=== PATIENT | male | born 1990 | race Caucasian/White ===

== ENCOUNTER 2018-04-05 10:18 | Emergency (ER) | payer OTHER ==
[2018-04-05] MEDS ORDERED: Zofran 4 MG/2 ML VIAL IV ONE (10:54)
[2018-04-05] MEDS ORDERED: Pepcid 20 MG VIAL IV ONE ×2 (10:54→11:12)
[2018-04-05] MEDS ORDERED: TORAdol 30 mg Injection IV ONE (10:54)
[2018-04-05] MEDS ORDERED: Sodium Chloride 0.9% 1000 ML 2,000 ML ONE (10:55)
[2018-04-05] MEDS: Sodium Chloride 0.9% 1000 ML 1,000 ML IV STA ×2 (10:58→11:35)
--- NOTE | 2018-04-05 11:00 | ERPHSYRPT ---
- History of Present Illness Time Seen by Provider: 04/05/18 10:42 Historian: patient Exam Limitations: clinical condition Patient Subjective Stated Complaint: frequent vomiting, cannot take in food 2 days. fell on the stairs caught self with left hand, now cannot media manager with that hand with out experiencing pain 8 on pain scale Triage Nursing Assessment: hypoactive bowel sounds, no vomiting witnessed at this time. pt states vomited 7 times in past 2 hours. sensation normal in lt hand, but media manager weak. slight possible swelling noted on outter aspect of back of rt hand Physician History: PATIENT COMPLAINS OF FREQUENT EPISODES OF EMESIS X 2 DAYS, ABOUT 7-8 EPISODES DAILY ASSOCIATED WITH UPPER ABDOMINAL PAIN. DENIES RADIATION OF PAIN TO BACK, DIARRHEA, URINARY SYMPTOMS OR FEVER. ADMITTING TO FALLING DOWN STAIRS SUSTAINED INJURY TO LEFT HAND ASSOCIATED WITH SWELLING. DENIES BRUISING. Timing/Duration: day(s) Activities at Onset: none Quality: cramping, sharpness Abdominal Pain Onset Location: epigastric Pain Radiation: no radiation Severity of Pain-Max: moderate Severity of Pain-Current: moderate Modifying Factors: Improves With: vomiting Associated Symptoms: loss of appetite, nausea, vomiting Previous symptoms: no prior history Hx Tetanus, Diphtheria Vaccination/Date Given: Yes Hx Influenza Vaccination/Date Given: No Hx Pneumococcal Vaccination/Date Given: No Immunizations Up to Date: Yes - Review of Systems Constitutional: No Fever, No Chills Eyes: No Symptoms Ears, Nose, & Throat: No Symptoms Respiratory: No Symptoms, No Cough, No Dyspnea Cardiac: No Symptoms, No Chest Pain, No Edema, No Syncope Abdominal/Gastrointestinal: Abdominal Pain, Nausea, Vomiting, No Diarrhea Genitourinary Symptoms: No Symptoms, No Dysuria Musculoskeletal: Injury, Joint Swelling, No Back Pain, No Neck Pain Skin: Decubiti, No Rash Neurological: No Dizziness, No Focal Weakness, No Sensory Changes Psychological: No Symptoms Endocrine: No Symptoms All Other Systems: Reviewed and Negative - Past Medical History Psycho-Social History: Anxiety, Depression Other Medical History: 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 - Past Surgical History Past Surgical History: Yes Musculoskeletal: Other Other Surgical History: lt hand tendon surgery 2015 - Social History Smoking Status: Current every day smoker How long have you smoked: 14 Exposure to second hand smoke: Yes Drug Use: marijuana Patient Lives Alone: Yes - Nursing Vital Signs Nursing Vital Signs: Initial Vital Signs Temperature 97.6 F 04/05/18 10:31 Pulse Rate 75 04/05/18 10:31 Respiratory Rate 18 04/05/18 10:31 Blood Pressure 133/73 04/05/18 10:31 O2 Sat by Pulse Oximetry 97 04/05/18 10:31 Pain Scale Pain Intensity 4 - Physical Exam General Appearance: no apparent distress, alert Eye Exam: PERRL/EOMI, eyes nml inspection Ears, Nose, Throat Exam: normal ENT inspection, pharynx normal, moist mucous membranes Neck Exam: normal inspection, non-tender, supple, full range of motion Respiratory Exam: normal breath sounds, lungs clear, No respiratory distress Cardiovascular Exam: regular rate/rhythm, normal heart sounds Gastrointestinal/Abdomen Exam: soft, normal bowel sounds, tenderness ( SUPRAUMBILICAL AND RIGHT LOWER QUADRANT, WITHOUT GUARDING OR REBOUND TENDERNESS ), No mass Back Exam: normal inspection, normal range of motion, No CVA tenderness, No vertebral tenderness Extremity Exam: normal inspection, normal range of motion, pelvis stable Neurologic Exam: alert, oriented x 3, cooperative, normal mood/affect, nml cerebellar function, sensation nml, No motor deficits Skin Exam: normal color, warm, dry SpO2 Interpretation: normal SpO2: 97 Oxygen Delivery: Room Air - Radiology Exams Left Hand X-ray Interpretation: Discussed w/ radiologist (COMMINUTED HAIRLINE FRACTURE PROXIMAL LEFT 4TH METACARPAL) - CT Exams Abdomen/Pelvis CT Interpretation: Discussed w/radiologist, Other (BORDER LINE GALLBLADDER WALL THICKENING WITHOUT GALLSTONES, INCIDENTAL SPENOMEGALY) Ordered Tests: Active Orders 24 hr Category Date Time Status Clean Catch Urine Specimen STAT Care 04/05/18 10:54 Active IV Insertion STAT Care 04/05/18 10:54 Active Splint STAT Care 04/05/18 12:40 Active ABDOMEN AND PELVIS W CONTRAST [CT] Stat Exams 04/05/18 10:54 Completed HAND (MINIMUM 3 VIEWS) Stat Exams 04/05/18 11:01 Completed AMYLASE Stat Lab 04/05/18 11:00 Completed CBC W DIFF Stat Lab 04/05/18 11:00 Completed CMP Stat Lab 04/05/18 11:00 Completed LIPASE Stat Lab 04/05/18 11:00 Completed UA W/RFX UR CULTURE Stat Lab 04/05/18 10:54 Uncollected Urine Triage Profile Stat Lab 04/05/18 10:54 Uncollected Medication Summary Discontinued Medications Generic Name Dose Route Start Last Admin Trade Name Richard PRN Reason Stop Dose Admin Famotidine 20 mg 04/05/18 10:54 04/05/18 11:14 Pepcid 20 Mg Vial IV 04/05/18 10:55 20 mg STAT ONE Administration Famotidine Confirm 04/05/18 11:12 Pepcid 20 Mg Vial Administered 04/05/18 11:13 Dose 20 mg IV .STK-MED ONE Sodium Chloride 1,000 mls @ 999 mls/hr 04/05/18 10:54 04/05/18 11:35 Sodium Chloride 0.9% 1000 Ml IV 04/05/18 11:54 999 mls/hr .Q1H1M STA Administration Sodium Chloride Confirm 04/05/18 10:55 Sodium Chloride 0.9% 1000 Ml Administered 04/05/18 10:56 Dose 2,000 mls @ ud .ROUTE .STK-MED ONE Ketorolac Tromethamine 30 mg 04/05/18 10:54 04/05/18 11:13 Toradol 30 Mg Injection IV 04/05/18 10:55 30 mg STAT ONE Administration Ketorolac Tromethamine Confirm 04/05/18 11:12 Toradol 30 Mg Injection Administered 04/05/18 11:13 Dose 30 mg .ROUTE .STK-MED ONE Ondansetron HCl 4 mg 04/05/18 10:54 04/05/18 11:14 Zofran 4 Mg/2 Ml Vial IV 04/05/18 10:55 4 mg STAT ONE Administration Ondansetron HCl Confirm 04/05/18 11:11 Zofran 4 Mg/2 Ml Vial Administered 04/05/18 11:12 Dose 4 mg .ROUTE .STK-MED ONE Lab/Rad Data: Laboratory Result Diagrams 04/05/18 11:00 04/05/18 11:00 Laboratory Results 04/05/18 04/05/18 Range/Units 11:00 11:00 WBC 5.0 (4.0-10.5) K/mm3 RBC 4.23 (4.1-5.6) M/mm3 Hgb 13.1 (12.5-18.0) gm/dl Hct 38.8 L (42-50) % MCV 91.7 (78-100) fl MCH 31.0 (26-32) pg MCHC 33.8 (32-36) g/dl RDW 12.5 (11.5-14.0) % Plt Count 205 (150-450) K/mm3 MPV 9.7 H (6-9.5) fl Gran % 53.9 (36.0-66.0) % Eos # (Auto) 0.08 (0-0.5) Absolute Lymphs (auto) 1.37 (1.0-4.6) Absolute Monos (auto) 0.83 (0.0-1.3) Lymphocytes % 27.5 (24.0-44.0) % Monocytes % 16.6 H (0.0-12.0) % Eosinophils % 1.6 (0.00-5.0) % Basophils % 0.4 (0.0-0.4) % Absolute Granulocytes 2.69 (1.4-6.9) Basophils # 0.02 (0-0.4) Sodium 138 (137-145) mmol/L Potassium 3.4 L (3.5-5.1) mmol/L Chloride 104 (98-107) mmol/L Carbon Dioxide 28 (22-30) mmol/L Anion Gap 10.2 (5-15) MEQ/L BUN 10 (9-20) mg/dL Creatinine 0.84 (0.66-1.25) mg/dL Estimated GFR > 60.0 ML/MIN Glucose 97 (74-106) mg/dL Calcium 9.2 (8.4-10.2) mg/dL Total Bilirubin 1.10 (0.2-1.3) mg/dL AST 355 H (17-59) U/L ALT 829 H (0-50) U/L Alkaline Phosphatase 186 H (38-126) U/L Serum Total Protein 6.6 (6.3-8.2) g/dL Albumin 4.0 (3.5-5.0) g/dL Amylase 56 (30-110) U/L Lipase 29 (23-300) U/L - Progress Progress Note: 04/05/18 11:04 ADMINISTERED IV NORMAL SALINE 1 LITER/HR X 2, ZOFRAN 4MG, ZANTAC 20MG, TORADOL 30MG IV Counseled pt/family regarding: lab results, diagnosis, need for follow-up, rad results - Departure Time of Disposition: 14:00 Departure Disposition: Home Clinical Impression: ACUTE EMESIS, ELEVATED LIVER ENZYMES, LEFT 4TH METACARPAL FRACTURE Condition: Stable Critical Care Time: No Additional Instructions: PEPCID 20MG TWICE DAILY FOR 2 WEEKS. TORADOL 10MG EVERY 6 HOURS NEEDED FOR PAIN. ZOFRAN 4MG EVERY 6 HOURS NEEDED FOR NAUSEA. MAINTAIN THE LEFT FOREARM SPLINT UNTIL EVALUATED BY THE [facility] [address] [place] [address] FOR FOLLOWUP ON SUNDAY. OBTAIN A PRIMARY CARE PROVIDER FOR FOLLOWUP OF EMERGENCY ROOM VISIT. Prescriptions: Ketorolac Tromethamine [Toradol] 10 mg PO Q6H PRN PRN #20 tablet PRN Reason: Pain Ondansetron ODT 4 MG [Zofran Odt 4 mg] 4 mg PO Q6H PRN PRN #8 tab.rapdis PRN Reason: Nausea Famotidine 20 mg [Pepcid 20 MG] 20 mg PO BID #30 tablet
[2018-04-05] MEDS ORDERED: Zofran 4 MG/2 ML VIAL ONE (11:11)
[2018-04-05] MEDS ORDERED: TORAdol 30 mg Injection ONE (11:12)
--- NOTE | 2018-04-05 11:23 | XRAY ---
Indication: Pain and swelling following fall. Comparison: None 3 views of the left hand demonstrates nondisplaced comminuted hairline fracture involving the proximal shaft and base of the 4th metacarpal with soft tissue swelling. Incidental old distal 5th metacarpal fracture. No other bony, articular, and soft tissue abnormalities.
[2018-04-05 11:32] LABS: BASOPHIL % 0.4 % (0.0-0.4); Basophil (Absolute #) 0.02 (0-0.4); Eosinophil % 1.6 % (0.00-5.0); Eosinophil (Absolute #) 0.08 (0-0.5); Granulocyte Absolute (ANC) 2.69 (1.4-6.9); Granulocytes % 53.9 % (36.0-66.0); Hematocrit 38.8 % (42-50); Hemoglobin 13.1 gm/dl (12.5-18.0); Lymphocyte (Absolute #) 1.37 (1.0-4.6); Lymphocytes % 27.5 % (24.0-44.0); Mean Cell Volume 91.7 fl (78-100); Mean Corpuscular Hgb Concent. 33.8 g/dl (32-36); Mean Platelet Volume 9.7 fl (6-9.5); Monocyte (Absolute #) 0.83 (0.0-1.3); Monocytes % 16.6 % (0.0-12.0); Platelet Count 205 K/mm3 (150-450); Red Blood Count 4.23 M/mm3 (4.1-5.6); Red Cell Distribution Width 12.5 % (11.5-14.0)
[2018-04-05 11:55] LABS: ALKALINE PHOSPHATASE 186 U/L (38-126); AMYLASE 56 U/L (30-110); ANION GAP 10.2 MEQ/L (5-15); BLOOD UREA NITROGEN 10 mg/dL (9-20); CHLORIDE 104 mmol/L (98-107); Calcium 9.2 mg/dL (8.4-10.2); Carbon Dioxide 28 mmol/L (22-30); Creatinine 1 0.84 mg/dL (0.66-1.25); Glucose 97 mg/dL (74-106); LIPASE 29 U/L (23-300); Potassium 3.4 mmol/L (3.5-5.1); SGOT/AST 355 U/L (17-59); SODIUM 138 mmol/L (137-145); Total Protein 6.6 g/dL (6.3-8.2)
[2018-04-05 12:01] LABS: SGPT/ALT 829 U/L (0-50)
--- NOTE | 2018-04-05 13:23 | XRAY ---
Indication: Abdominal pain, nausea, and vomiting. Multiple contiguous axial images obtained through the abdomen and pelvis using 80 cc Isovue 370 contrast only. Comparison: None Lung bases demonstrates minimal bibasilar atelectasis/scarring. No infiltrate or effusion. Heart is not enlarged. Noncontrasted stomach and bowel loops appear nonobstructed. Normal appendix. Borderline gallbladder wall thickening without obvious gallstones or biliary distention. Tiny pelvic free fluid. No free air. Spleen is enlarged measuring 14.2 cm in greatest axial dimension. Remaining liver, gallbladder, pancreas, spleen, adrenal glands, kidneys, ureters, bladder, and aorta appear unremarkable. No pathologic retroperitoneal lymphadenopathy. Osseous structures intact with healing nondisplaced right 6th rib fracture. No ventral or inguinal hernias. Impression: 1. Borderline gallbladder wall thickening without gallstones. Tiny pelvic free fluid may or may not be related. Gallbladder sonogram may yield further information. 2. Incidental splenomegaly. CT DI 18.98
[2018-04-05 13:56] VITALS: O2SAT 97
[2018-04-05 14:46] VITALS: BP 125/64; PULSE 68
[2018-04-06 13:08] LABS: Hepatitis B Surface Antigen Non Reactive (Non Reactive)
[2018-04-06 14:34] LABS: HEPATITIS B VIRUS CORE TOT AB Reactive (Non Reactive)
[2018-04-06 14:36] LABS: HEPATITIS C VIRUS ANTIBODY Weak Reactive (Non Reactive)
== END 2018-04-05 14:40 | disposition home or self-care (01) ==
LOC: ED 10:18
DX: R11.2 Nausea with vomiting, unspecified (principal); R10.13 Epigastric pain; R74.8 Abnormal levels of other serum enzymes; S62.325A Displaced fracture of shaft of fourth metacarpal bone, left hand, initial encounter for closed fracture; W10.9XXA Fall (on) (from) unspecified stairs and steps, initial encounter
CPT/HCPCS: 29126; 36000; 36415; 73130; 74177; 80053; 80074; 82150; 83690; 85025; 96360; 96374; 96375; 99284; J1885; J2405

== ENCOUNTER 2018-04-07 08:28 | Emergency (ER) | payer OTHER ==
--- NOTE | 2018-04-07 09:29 | ERPHSYRPT ---
- History of Present Illness Time Seen by Provider: 04/07/18 09:15 Historian: patient Exam Limitations: no limitations Patient Subjective Stated Complaint: PT states "I have had belly pain for awhile and it is not getting better. I cannot get the nausea medication filled because my insurance has not kicked in yet." Triage Nursing Assessment: Pt alert and oriented X 3, skin pwd. Pt moaning. Pt tachypneic. Pt able to speak in clear full sentences. Pt in no apparent respiratory distress. Pt holding his abdomen. Physician History: The patient is a 27-year-old male complaining of intermittent abdominal pain for one month. He was seen in this ER by Dr. Roberts on 04/05/18 for abdominal pain. He had a CT scan done of his abdomen and pelvis which showed possible mild gallbladder wall thickening. Over the last 5 days he has vomited every time he tries to eat or drink anything. His abdominal pain is severe. Over the last 2 days he has been vomiting without eating or drinking anything. He has not had a bowel movement in several days. When he was last here in the ER, he was given a prescription for Pepcid, Toradol, and Zofran. He was not able to purchase these because the norman was over $100. His past medical history is unremarkable. Timing/Duration: week(s) (4), gradual onset, worse Activities at Onset: none Quality: stabbing Abdominal Pain Onset Location: RUQ Pain Radiation: no radiation Severity of Pain-Max: severe Severity of Pain-Current: severe Modifying Factors: Improves With: vomiting Associated Symptoms: nausea, vomiting Previous symptoms: same symptoms as today, recently seen Allergies/Adverse Reactions: No Known Drug Allergies Allergy (Unverified 04/07/18 08:40) Hx Tetanus, Diphtheria Vaccination/Date Given: Yes Hx Influenza Vaccination/Date Given: Yes Hx Pneumococcal Vaccination/Date Given: No Immunizations Up to Date: Yes - Review of Systems Constitutional: No Fever, No Chills Eyes: No Symptoms Ears, Nose, & Throat: No Symptoms Respiratory: No Cough, No Dyspnea Cardiac: No Chest Pain, No Edema, No Syncope Abdominal/Gastrointestinal: Abdominal Pain, Nausea, Vomiting Genitourinary Symptoms: No Dysuria Musculoskeletal: No Back Pain, No Neck Pain Skin: No Rash Neurological: No Dizziness, No Focal Weakness, No Sensory Changes Psychological: No Symptoms Endocrine: No Symptoms Hematologic/Lymphatic: No Symptoms Immunological/Allergic: No Symptoms All Other Systems: Reviewed and Negative - Past Medical History Pertinent Past Medical History: No Psycho-Social History: Anxiety, Depression Other Medical History: 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 - Past Surgical History Past Surgical History: Yes Musculoskeletal: Other Other Surgical History: lt hand tendon surgery 2016 - Social History Smoking Status: Current every day smoker How long have you smoked: years Exposure to second hand smoke: Yes Drug Use: marijuana Patient Lives Alone: No - Nursing Vital Signs Nursing Vital Signs: Initial Vital Signs Temperature 97.8 F 04/07/18 08:33 Pulse Rate 84 04/07/18 08:33 Respiratory Rate 20 04/07/18 08:33 Blood Pressure 128/75 04/07/18 08:33 O2 Sat by Pulse Oximetry 100 04/07/18 08:33 Pain Scale Pain Intensity 4 - Physical Exam General Appearance: moderate distress Eye Exam: PERRL/EOMI, eyes nml inspection Ears, Nose, Throat Exam: normal ENT inspection, pharynx normal, moist mucous membranes Neck Exam: normal inspection, non-tender, supple, full range of motion Respiratory Exam: normal breath sounds, lungs clear, No respiratory distress Cardiovascular Exam: regular rate/rhythm, normal heart sounds Gastrointestinal/Abdomen Exam: tenderness (RUQ) Rectal Exam: not done Back Exam: normal inspection, normal range of motion, No CVA tenderness, No vertebral tenderness Extremity Exam: normal inspection, normal range of motion, pelvis stable Neurologic Exam: alert, oriented x 3, cooperative, normal mood/affect, nml cerebellar function, sensation nml, No motor deficits Skin Exam: normal color, warm, dry SpO2 Interpretation: normal SpO2: 100 Oxygen Delivery: Room Air - Radiology Ultrasound Exam Gallbladder Ultrasound: discussed w/radiologist (discussed with U/S tech), Other (minimal sludge in gallbladder. GB wall thickness 0.19 cm. Small nonshadowing calculus at mid lateral pole of right kidney.) Ordered Tests: Active Orders 24 hr Category Date Time Status Clean Catch Urine Specimen STAT Care 04/07/18 09:33 Active IV Insertion STAT Care 04/07/18 09:33 Active GALLBLADDER [US] Stat Exams 04/07/18 11:02 Taken CBC W DIFF Stat Lab 04/07/18 09:40 Completed CMP Stat Lab 04/07/18 09:40 Completed LIPASE Stat Lab 04/07/18 09:40 Completed Lactic Acid Stat Lab 04/07/18 09:33 Completed UA W/RFX UR CULTURE Stat Lab 04/07/18 10:00 Completed Urine Triage Profile Stat Lab 04/07/18 10:00 Completed Medication Summary Discontinued Medications Generic Name Dose Route Start Last Admin Trade Name Elielq PRN Reason Stop Dose Admin Famotidine 20 mg 04/07/18 09:33 04/07/18 10:00 Pepcid 20 Mg Vial IV 04/07/18 09:34 20 mg STAT ONE Administration Famotidine Confirm 04/07/18 09:52 Pepcid 20 Mg Vial Administered 04/07/18 09:53 Dose 20 mg IV .STK-MED ONE Sodium Chloride 1,000 mls @ 999 mls/hr 04/07/18 09:33 04/07/18 11:29 Sodium Chloride 0.9% 1000 Ml IV 04/07/18 10:33 Infused .Q1H1M STA Infusion Sodium Chloride Confirm 04/07/18 09:52 Sodium Chloride 0.9% 1000 Ml Administered 04/07/18 09:53 Dose 1,000 mls @ ud .ROUTE .STK-MED ONE Sodium Chloride Confirm 04/07/18 11:25 Sodium Chloride 0.9% 1000 Ml Administered 04/07/18 11:26 Dose 1,000 mls @ ud .ROUTE .STK-MED ONE Sodium Chloride 1,000 mls @ 999 mls/hr 04/07/18 11:30 04/07/18 12:37 Sodium Chloride 0.9% 1000 Ml IV 04/07/18 12:30 Infused .Q1H1M STA Infusion Morphine Sulfate 4 mg 04/07/18 09:33 04/07/18 10:00 Morphine Sulfate 4 Mg Inj IV 04/07/18 09:34 4 mg STAT ONE Administration Morphine Sulfate Confirm 04/07/18 09:52 Morphine Sulfate 4 Mg Inj Administered 04/07/18 09:53 Dose 4 mg .ROUTE .STK-MED ONE Morphine Sulfate 4 mg 04/07/18 11:39 04/07/18 11:50 Morphine Sulfate 4 Mg Inj IV 04/07/18 11:40 4 mg STAT ONE Administration Morphine Sulfate Confirm 04/07/18 11:46 Morphine Sulfate 4 Mg Inj Administered 04/07/18 11:47 Dose 4 mg .ROUTE .STK-MED ONE Ondansetron HCl 4 mg 04/07/18 09:33 04/07/18 10:00 Zofran Odt 4 Mg PO 04/07/18 09:34 4 mg STAT ONE Administration Ondansetron HCl Confirm 04/07/18 09:52 Zofran Odt 4 Mg Administered 04/07/18 09:53 Dose 4 mg .ROUTE .STK-MED ONE Lab/Rad Data: Laboratory Result Diagrams 04/07/18 09:40 04/07/18 09:40 Laboratory Results 04/07/18 04/07/18 04/07/18 Range/Units 10:00 10:00 09:40 WBC (4.0-10.5) K/mm3 RBC (4.1-5.6) M/mm3 Hgb (12.5-18.0) gm/dl Hct (42-50) % MCV (78-100) fl MCH (26-32) pg MCHC (32-36) g/dl RDW (11.5-14.0) % Plt Count (150-450) K/mm3 MPV (6-9.5) fl Gran % (36.0-66.0) % Eos # (Auto) (0-0.5) Absolute Lymphs (auto) (1.0-4.6) Absolute Monos (auto) (0.0-1.3) Lymphocytes % (24.0-44.0) % Monocytes % (0.0-12.0) % Eosinophils % (0.00-5.0) % Basophils % (0.0-0.4) % Absolute Granulocytes (1.4-6.9) Basophils # (0-0.4) Sodium 136 L (137-145) mmol/L Potassium 4.1 D (3.5-5.1) mmol/L Chloride 100 (98-107) mmol/L Carbon Dioxide 23 (22-30) mmol/L Anion Gap 17.4 H (5-15) MEQ/L BUN 16 (9-20) mg/dL Creatinine 0.71 (0.66-1.25) mg/dL Estimated GFR > 60.0 ML/MIN Glucose 93 (74-106) mg/dL Lactic Acid (0.4-2.0) Calcium 9.2 (8.4-10.2) mg/dL Total Bilirubin 1.60 H (0.2-1.3) mg/dL AST 265 H (17-59) U/L ALT 686 H (0-50) U/L Alkaline Phosphatase 203 H (38-126) U/L Serum Total Protein 7.4 (6.3-8.2) g/dL Albumin 4.5 (3.5-5.0) g/dL Lipase 11 L (23-300) U/L Urine Color GLENN (YELLOW) Urine Appearance CLEAR (CLEAR) Urine pH 6.0 (5-6) Ur Specific [place] 1.026 (1.005-1.025) Urine Protein 30 (Negative) Urine Ketones MODERATE (NEGATIVE) Urine Blood NEGATIVE (0-5) Antony/ul Urine Nitrite NEGATIVE (NEGATIVE) Urine Bilirubin NEGATIVE (NEGATIVE) Urine Urobilinogen 4 (0-1) mg/dL Ur Leukocyte Esterase NEGATIVE (NEGATIVE) Urine WBC (Auto) 3-5 (0-5) /HPF Urine RBC (Auto) NONE (0-2) /HPF U Epithel Cells (Auto) NONE (FEW) /HPF Urine Bacteria (Auto) NONE (NEGATIVE) /HPF Urine Mucus (Auto) SLIGHT (NEGATIVE) /HPF Urine Culture Reflexed NO (NO) Urine Glucose NEGATIVE (NEGATIVE) mg/dL Urine Opiates Level NEGATIVE (NEGATIVE) Ur Methadone NEGATIVE (NEGATIVE) Urine Barbiturates NEGATIVE (NEGATIVE) Ur Phencyclidine (PCP) NEGATIVE (NEGATIVE) Urine Amphetamine NEGATIVE (NEGATIVE) U Benzodiazepine Level NEGATIVE (NEGATIVE) Urine Cocaine NEGATIVE (NEGATIVE) Urine Marijuana (THC) POSITIVE (NEGATIVE) 04/07/18 04/07/18 Range/Units 09:40 09:33 WBC 7.3 (4.0-10.5) K/mm3 RBC 4.72 (4.1-5.6) M/mm3 Hgb 14.6 (12.5-18.0) gm/dl Hct 41.9 L (42-50) % MCV 88.8 (78-100) fl MCH 30.9 (26-32) pg MCHC 34.8 (32-36) g/dl RDW 12.4 (11.5-14.0) % Plt Count 263 (150-450) K/mm3 MPV 9.6 H (6-9.5) fl Gran % 73.7 H (36.0-66.0) % Eos # (Auto) 0.01 (0-0.5) Absolute Lymphs (auto) 1.05 (1.0-4.6) Absolute Monos (auto) 0.83 (0.0-1.3) Lymphocytes % 14.5 L (24.0-44.0) % Monocytes % 11.4 (0.0-12.0) % Eosinophils % 0.1 (0.00-5.0) % Basophils % 0.3 (0.0-0.4) % Absolute Granulocytes 5.34 (1.4-6.9) Basophils # 0.02 (0-0.4) Sodium (137-145) mmol/L Potassium (3.5-5.1) mmol/L Chloride (98-107) mmol/L Carbon Dioxide (22-30) mmol/L Anion Gap (5-15) MEQ/L BUN (9-20) mg/dL Creatinine (0.66-1.25) mg/dL Estimated GFR ML/MIN Glucose (74-106) mg/dL Lactic Acid 1.5 (0.4-2.0) Calcium (8.4-10.2) mg/dL Total Bilirubin (0.2-1.3) mg/dL AST (17-59) U/L ALT (0-50) U/L Alkaline Phosphatase (38-126) U/L Serum Total Protein (6.3-8.2) g/dL Albumin (3.5-5.0) g/dL Lipase (23-300) U/L Urine Color (YELLOW) Urine Appearance (CLEAR) Urine pH (5-6) Ur Specific [place] (1.005-1.025) Urine Protein (Negative) Urine Ketones (NEGATIVE) Urine Blood (0-5) Antony/ul Urine Nitrite (NEGATIVE) Urine Bilirubin (NEGATIVE) Urine Urobilinogen (0-1) mg/dL Ur Leukocyte Esterase (NEGATIVE) Urine WBC (Auto) (0-5) /HPF Urine RBC (Auto) (0-2) /HPF U Epithel Cells (Auto) (FEW) /HPF Urine Bacteria (Auto) (NEGATIVE) /HPF Urine Mucus (Auto) (NEGATIVE) /HPF Urine Culture Reflexed (NO) Urine Glucose (NEGATIVE) mg/dL Urine Opiates Level (NEGATIVE) Ur Methadone (NEGATIVE) Urine Barbiturates (NEGATIVE) Ur Phencyclidine (PCP) (NEGATIVE) Urine Amphetamine (NEGATIVE) U Benzodiazepine Level (NEGATIVE) Urine Cocaine (NEGATIVE) Urine Marijuana (THC) (NEGATIVE) - Progress Progress: improved Progress Note: 04/07/18 11:[address] Mimi Trujillo and Dr Baker. Dr Clement to see pt tomorrow. NPO after midnight. 04/07/18 11:55 Dr Baker consulted with Dr Clement and wants pt to be transferred to [facility] for GI consult in addition to surgery consult. Dr Mimi Trujillo is aware and agrees to see pt at [facility]. 04/07/18 12:41 I discussed pt with Dr Dotson at [facility] who declines acceptance because they do not have any GI doctor who does ERCP for one week. Wants pt to go to . 04/07/18 13:[address] Grewal, GI doctor, and Dr Ferreira, hospitalist, at [facility] accepts pt. Discussed with : Olivia Corral Counseled pt/family regarding: lab results, diagnosis, rad results - Departure Time of Disposition: 11:46 Departure Disposition: Transfer (Transfer to [facility] per Byron Ferreira and Carmina.) Clinical Impression: Abdominal pain, Hepatitis Condition: Stable Critical Care Time: No Referrals: DOCTOR,NO FAMILY [Primary Care Provider] -
[2018-04-07] MEDS ORDERED: Sodium Chloride 0.9% 1000 ML 1,000 ML IV STA ×2 (09:33→11:30)
[2018-04-07] MEDS ORDERED: Pepcid 20 MG VIAL IV ONE ×2 (09:33→09:52)
[2018-04-07] MEDS ORDERED: MORPHINE SULFATE 4 MG INJ IV ONE ×3 (09:33→15:57)
[2018-04-07] MEDS ORDERED: ZOFRAN ODT 4 MG PO ONE (09:33)
[2018-04-07 09:49] LABS: BASOPHIL % 0.3 % (0.0-0.4); Basophil (Absolute #) 0.02 (0-0.4); Eosinophil % 0.1 % (0.00-5.0); Eosinophil (Absolute #) 0.01 (0-0.5); Granulocyte Absolute (ANC) 5.34 (1.4-6.9); Granulocytes % 73.7 % (36.0-66.0); Hematocrit 41.9 % (42-50); Hemoglobin 14.6 gm/dl (12.5-18.0); Lymphocyte (Absolute #) 1.05 (1.0-4.6); Lymphocytes % 14.5 % (24.0-44.0); Mean Cell Volume 88.8 fl (78-100); Mean Corpuscular Hemoglobin 30.9 pg (26-32); Mean Corpuscular Hgb Concent. 34.8 g/dl (32-36); Mean Platelet Volume 9.6 fl (6-9.5); Monocyte (Absolute #) 0.83 (0.0-1.3); Monocytes % 11.4 % (0.0-12.0); Platelet Count 263 K/mm3 (150-450); Red Blood Count 4.72 M/mm3 (4.1-5.6); Red Cell Distribution Width 12.4 % (11.5-14.0); White Blood Count 7.3 K/mm3 (4.0-10.5)
[2018-04-07] MEDS ORDERED: MORPHINE SULFATE 4 MG INJ ONE ×3 (09:52→16:00)
[2018-04-07] MEDS ORDERED: Sodium Chloride 0.9% 1000 ML 1,000 ML ONE ×2 (09:52→11:25)
[2018-04-07] MEDS ORDERED: ZOFRAN ODT 4 MG ONE (09:52)
[2018-04-07 10:05] LABS: ALBUMIN 4.5 g/dL (3.5-5.0); ALKALINE PHOSPHATASE 203 U/L (38-126); ANION GAP 17.4 MEQ/L (5-15); BLOOD UREA NITROGEN 16 mg/dL (9-20); CHLORIDE 100 mmol/L (98-107); Calcium 9.2 mg/dL (8.4-10.2); Carbon Dioxide 23 mmol/L (22-30); Creatinine 1 0.71 mg/dL (0.66-1.25); Glucose 93 mg/dL (74-106); LIPASE 11 U/L (23-300); Potassium 4.1 mmol/L (3.5-5.1); SGOT/AST 265 U/L (17-59); SGPT/ALT 686 U/L (0-50); SODIUM 136 mmol/L (137-145); Total Protein 7.4 g/dL (6.3-8.2)
[2018-04-07 10:42] LABS: Amphetamine,Urine NEGATIVE (NEGATIVE); Barbiturate,Urine NEGATIVE (NEGATIVE); Benzodiazepine,Urine NEGATIVE (NEGATIVE); Cocaine,Urine NEGATIVE (NEGATIVE); Methadone,Urine NEGATIVE (NEGATIVE); Opiate,Urine NEGATIVE (NEGATIVE); PCP,Urine NEGATIVE (NEGATIVE); THC,Urine POSITIVE (NEGATIVE)
[2018-04-07 10:45] LABS: Appearance CLEAR (CLEAR); Bilirubin NEGATIVE (NEGATIVE); Blood NEGATIVE Ery/ul (0-5); Glucose NEGATIVE (NEGATIVE); Ketones MODERATE (NEGATIVE); Leukocyte Esterase NEGATIVE (NEGATIVE); Nitrite NEGATIVE (NEGATIVE); Protein,Urine Dip 30 (Negative); Specific Gravity 1.026 (1.005-1.025); Urobilinogen 4 mg/dL (0-1)
[2018-04-07 15:36] VITALS: O2SAT 98
[2018-04-07 16:05] VITALS: BP 119/65; PULSE 66
--- NOTE | 2018-04-07 19:16 | XRAY ---
Indication: Right upper quadrant pain 1 month. Nausea and vomiting. Two-dimensional gallbladder sonogram performed. Comparison: None Gallbladder normally distended with minimal sludge. No gallstones, wall thickening, or pericholecystic fluid. Common bile duct measures 3.2 mm. Remaining visualized portions of the liver, pancreas, and right kidney appear sonographically normal. Right kidney measures 11.6 cm in length. No ascites. Impression: Minimal gallbladder sludge. Remaining gallbladder sonogram is negative. Comment: Preliminary report was given.
== END 2018-04-07 16:00 | disposition short-term general hospital (02) ==
LOC: ED 08:28
DX: R10.11 Right upper quadrant pain (principal); K75.9 Inflammatory liver disease, unspecified; R11.2 Nausea with vomiting, unspecified
CPT/HCPCS: 36000; 36415; 76705; 80053; 80307; 81001; 83605; 83690; 85025; 96360; 96361; 96374; 96375; 96376; 99285; J2270; Q0162

== ENCOUNTER 2018-06-30 11:20 | Emergency (ER) | payer OTHER ==
[2018-06-30] MEDS ORDERED: Sodium Chloride 0.9% 1000 ML 1,000 ML IV STA (11:55)
[2018-06-30] MEDS ORDERED: ANTIVERT 25 MG PO ONE (11:55)
[2018-06-30] MEDS ORDERED: Sodium Chloride 0.9% 1000 ML 1,000 ML ONE (12:04)
[2018-06-30] MEDS ORDERED: ANTIVERT 25 MG ONE (12:04)
[2018-06-30 12:26] LABS: BASOPHIL % 0.4 % (0.0-0.4); Basophil (Absolute #) 0.03 (0-0.4); Eosinophil (Absolute #) 0.07 (0-0.5); Granulocyte Absolute (ANC) 3.74 (1.4-6.9); Granulocytes % 51.4 % (36.0-66.0); Hematocrit 37.9 % (42-50); Lymphocyte (Absolute #) 2.39 (1.0-4.6); Lymphocytes % 32.8 % (24.0-44.0); Mean Cell Volume 89.4 fl (78-100); Mean Corpuscular Hemoglobin 30.7 pg (26-32); Mean Corpuscular Hgb Concent. 34.3 g/dl (32-36); Mean Platelet Volume 9.6 fl (6-9.5); Monocyte (Absolute #) 1.05 (0.0-1.3); Monocytes % 14.4 % (0.0-12.0); Platelet Count 229 K/mm3 (150-450); Red Blood Count 4.24 M/mm3 (4.1-5.6); Red Cell Distribution Width 12.6 % (11.5-14.0); White Blood Count 7.3 K/mm3 (4.0-10.5)
[2018-06-30 12:37] LABS: ALBUMIN 4.5 g/dL (3.5-5.0); ALKALINE PHOSPHATASE 126 U/L (38-126); ANION GAP 13.4 MEQ/L (5-15); BLOOD UREA NITROGEN 24 mg/dL (9-20); CHLORIDE 102 mmol/L (98-107); Calcium 9.4 mg/dL (8.4-10.2); Carbon Dioxide 22 mmol/L (22-30); Creatinine 1 0.94 mg/dL (0.66-1.25); Glucose 90 mg/dL (74-106); MAGNESIUM 2.1 mg/dL (1.6-2.3); Potassium 4.3 mmol/L (3.5-5.1); SGOT/AST 100 U/L (17-59); SGPT/ALT 256 U/L (0-50); SODIUM 134 mmol/L (137-145); Total Protein 7.7 g/dL (6.3-8.2)
[2018-06-30 14:30] VITALS: O2SAT 96
--- NOTE | 2018-06-30 14:53 | ERPHSYRPT ---
- History of Present Illness Source: patient Exam Limitations: no limitations Patient Subjective Stated Complaint: Pt feels funny. pt woozy started yesterday got worse today. Almost feel off the ladder at work. Sick couple days ago. Green snot. Triage Nursing Assessment: Alert and oriented x3, steady gait, talking in full sentence. Physician History: Pt is a 27 y/o male that presented to the ED complaining of dizziness. Pt states, was very weak yesterday, and almost fell of the ladder at work today. Pt denies F/C/S. No SOB or cough. He does have a h/o of Hep C that is not treated, and he is aware that his enzymes are high. Pt denies chest pain or palpitations. No headache. Timing/Duration: yesterday Severity: mild Character of Deficits: none Deficits: no difficulties Baseline/Normal Cognition: alert oriented x 3 Current Cognition: alert oriented x 3 Allergies/Adverse Reactions: No Known Drug Allergies Allergy (Unverified 04/07/18 08:40) Home Medications: Ascorbic Acid 500 mg [Vitamin C 500 MG] 500 mg PO DAILY 06/30/18 [History] Famotidine [Pepcid] 20 mg PO DAILY 06/30/18 [History] Hx Tetanus, Diphtheria Vaccination/Date Given: Yes (within 5 years) Hx Influenza Vaccination/Date Given: (unsure) Hx Pneumococcal Vaccination/Date Given: No - Review of Systems Constitutional: Fatigue Eyes: No Symptoms Ears, Nose, & Throat: No Symptoms Respiratory: No Cough, No Dyspnea Cardiac: No Chest Pain, No Edema, No Syncope Abdominal/Gastrointestinal: No Abdominal Pain, No Nausea, No Vomiting, No Diarrhea Genitourinary Symptoms: No Dysuria Musculoskeletal: No Back Pain, No Neck Pain Neurological: Dizziness Psychological: No Symptoms Endocrine: No Symptoms - Past Medical History Pertinent Past Medical History: Yes Psycho-Social History: Anxiety, Depression Other Medical History: 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 Hep c. - Past Surgical History Past Surgical History: Yes Musculoskeletal: Other Other Surgical History: lt hand tendon surgery 2015 - Social History Smoking Status: Current every day smoker How long have you smoked: 13 Exposure to second hand smoke: Yes Drug Use: marijuana Patient Lives Alone: No - Nursing Vital Signs Nursing Vital Signs: Initial Vital Signs Temperature 98.1 F 06/30/18 11:46 Pulse Rate 110 H 06/30/18 11:46 Respiratory Rate 20 06/30/18 11:46 Blood Pressure 140/64 06/30/18 11:46 O2 Sat by Pulse Oximetry 99 06/30/18 11:46 Pain Scale Pain Intensity 0 - [place] Coma Scale Best Eye Response ([place]): (4) open spontaneously Best Verbal Response ([place]): (5) oriented Best Motor Response ([place]): (6) obeys commands [place] Total: 15 - Physical Exam General Appearance: no apparent distress, alert Neck Exam: normal inspection, non-tender, supple Respiratory: normal breath sounds, lungs clear, airway intact, No respiratory distress Cardiovascular: regular rate/rhythm, No edema Extremity Exam: normal inspection, 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 hearing, normal speech, PERRL, tongue midline Coordination/Gait: normal finger to nose, normal gait SpO2: 96 - Course Nursing assessment & vital signs reviewed: Yes Ordered Tests: Active Orders 24 hr Category Date Time Status IV Insertion STAT Care 06/30/18 11:55 Active Orthostatic Vital Signs STAT Care 06/30/18 11:55 Active CHEST 2 VIEWS (PA AND LAT) Stat Exams 06/30/18 11:56 Taken CBC W DIFF Stat Lab 06/30/18 12:10 Completed CMP Stat Lab 06/30/18 12:10 Completed MAGNESIUM Stat Lab 06/30/18 12:10 Completed UA W/RFX UR CULTURE Stat Lab 06/30/18 11:55 Ordered Urine Triage Profile Stat Lab 06/30/18 11:55 Ordered Medication Summary Discontinued Medications Generic Name Dose Route Start Last Admin Trade Name Elielq PRN Reason Stop Dose Admin Sodium Chloride 1,000 mls @ 999 mls/hr 06/30/18 11:55 06/30/18 12:06 Sodium Chloride 0.9% 1000 Ml IV 06/30/18 12:55 999 mls/hr .Q1H1M STA Administration Sodium Chloride Confirm 06/30/18 12:04 Sodium Chloride 0.9% 1000 Ml Administered 06/30/18 12:05 Dose 1,000 mls @ ud .ROUTE .STK-MED ONE Meclizine HCl 50 mg 06/30/18 11:55 06/30/18 12:06 Antivert 25 Mg PO 06/30/18 11:56 50 mg STAT ONE Administration Meclizine HCl Confirm 06/30/18 12:04 Antivert 25 Mg Administered 06/30/18 12:05 Dose 50 mg .ROUTE .STK-MED ONE Lab/Rad Data: Laboratory Result Diagrams 06/30/18 12:10 06/30/18 12:10 Laboratory Results 06/30/18 06/30/18 Range/Units 12:10 12:10 WBC 7.3 (4.0-10.5) K/mm3 RBC 4.24 (4.1-5.6) M/mm3 Hgb 13.0 (12.5-18.0) gm/dl Hct 37.9 L (42-50) % MCV 89.4 (78-100) fl MCH 30.7 (26-32) pg MCHC 34.3 (32-36) g/dl RDW 12.6 (11.5-14.0) % Plt Count 229 (150-450) K/mm3 MPV 9.6 H (6-9.5) fl Gran % 51.4 (36.0-66.0) % Eos # (Auto) 0.07 (0-0.5) Absolute Lymphs (auto) 2.39 (1.0-4.6) Absolute Monos (auto) 1.05 (0.0-1.3) Lymphocytes % 32.8 (24.0-44.0) % Monocytes % 14.4 H (0.0-12.0) % Eosinophils % 1.0 (0.00-5.0) % Basophils % 0.4 (0.0-0.4) % Absolute Granulocytes 3.74 (1.4-6.9) Basophils # 0.03 (0-0.4) Sodium 134 L (137-145) mmol/L Potassium 4.3 (3.5-5.1) mmol/L Chloride 102 (98-107) mmol/L Carbon Dioxide 22 (22-30) mmol/L Anion Gap 13.4 (5-15) MEQ/L BUN 24 H (9-20) mg/dL Creatinine 0.94 (0.66-1.25) mg/dL Estimated GFR > 60.0 ML/MIN Glucose 90 (74-106) mg/dL Calcium 9.4 (8.4-10.2) mg/dL Magnesium 2.1 (1.6-2.3) mg/dL Total Bilirubin 1.30 (0.2-1.3) mg/dL AST 100 H (17-59) U/L ALT 256 H (0-50) U/L Alkaline Phosphatase 126 (38-126) U/L Serum Total Protein 7.7 (6.3-8.2) g/dL Albumin 4.5 (3.5-5.0) g/dL - Progress Progress: improved Progress Note: 06/30/18 14:54 Pt hada work up that showed transaminitis, that are known to the pt, secondary to Hep C. He got meclizinex1, and IVF and now he is feeling well, and has no complains. Pt should f/u with PCP, and with GI for treatment of his Hep C. Pt refused urine checks, and those were cancelled. Will see patient in: office Counseled pt/family regarding: need for follow-up - Departure Time of Disposition: 14:55 Departure Disposition: Home Clinical Impression: Dizziness Condition: Stable Critical Care Time: No Referrals: DOCTOR,NO FAMILY [Primary Care Provider] -
[2018-06-30 14:54] VITALS: BP 111/50; PULSE 69
--- NOTE | 2018-06-30 19:37 | XRAY ---
Indication: Tachycardia, congestion, and dizziness. Comparison: None PA/lateral chest demonstrates normal heart, lungs, and bony thorax.
== END 2018-06-30 15:07 | disposition home or self-care (01) ==
LOC: ED 11:20
DX: R42 Dizziness and giddiness (principal); B19.20 Unspecified viral hepatitis C without hepatic coma; F41.9 Anxiety disorder, unspecified
CPT/HCPCS: 36415; 71046; 80053; 83735; 85025; 96360; 99284; A9270-GY

== ENCOUNTER 2023-09-04 18:29 | Emergency (ER) | payer MEDICAID ==
[2023-09-04 18:44] VITALS: TEMP 97.8
[2023-09-04] MEDS ORDERED: Sodium Chloride 0.9% 1000 ML 1,000 ML ONE (19:03)
[2023-09-04] MEDS: Sodium Chloride 0.9% 1000 ML 1,000 ML IV STA (19:05)
[2023-09-04 19:07] LABS: Absolute Neutrophil Ct (ANC) 3.47 x10^3/uL (1.4-6.9); BASOPHIL % 0.6 % (0.0-0.4); Basophil (Absolute #) 0.04 x10^3/uL (0-0.4); Eosinophil % 2.6 % (0.00-5.0); Eosinophil (Absolute #) 0.19 x10^3/uL (0-0.5); Hematocrit 37.6 % (42-50); Hemoglobin 12.9 g/dL (12.5-18.0); IMMATURE GRAN # 0.02 x10^3u/L (0.00-0.03); IMMATURE GRAN % 0.3 % (0.00-0.4); Lymphocyte (Absolute #) 2.74 x10^3/uL (1.0-4.6); Lymphocytes % 38.2 % (24.0-44.0); Mean Corpuscular Hemoglobin 30.9 pg (26-32); Mean Corpuscular Hgb Concent. 34.3 g/dL (32-36); Mean Platelet Volume 9.6 fL (7.5-11.0); Monocyte (Absolute #) 0.72 x10^3/uL (0.0-1.3); Neutrophil % 48.3 % (36.0-66.0); Platelet Count 223 x10^3/uL (150-450); Red Blood Count 4.18 x10^6/uL (4.1-5.6); White Blood Count 7.2 x10^3/uL (4.0-10.5)
[2023-09-04 19:34] LABS: ALBUMIN 3.8 g/dL (3.5-5.0); BILIRUBIN,TOTAL 0.3 mg/dL (0.2-1.3); Calcium 9.1 mg/dL (8.4-10.2); Creatinine 1 1.06 mg/dL (0.66-1.25); EST GLOMERULAR FILTRATION RATE 95.6 ML/MIN; Total Protein 6.6 g/dL (6.3-8.2)
[2023-09-04 19:44] LABS: Appearance Turbid (Clear); Bacteria None Seen /HPF (None Seen); Bilirubin Negative (Negative); Blood Moderate (Negative); Epithelial Cells Rare /HPF (None Seen); Glucose, Urine Negative (Negative); Ketones Trace (Negative); Leukocyte Esterase Small (Negative); Nitrite Negative (Negative); Ph 5.5 (4.6-8.0); Protein,Urine Dip 30 (Negative); Specific Gravity >=1.030 (1.005-1.030); WBC 21-50 /HPF (0-5)
[2023-09-04 19:47] LABS: ADD URINE CULTURE? YES (NO)
[2023-09-04 21:02] VITALS: BP 106/64; PULSE 75; RESP 16; O2SAT 96
[2023-09-04] MEDS ORDERED: ROCEPHIN 1 GM / 100 ML NaCl 1 GM/100 ML IVPB IV ONE (21:05)
[2023-09-04] MEDS: ROCEPHIN 1 GM / 100 ML NaCl 1 GM/100 ML IVPB IV ONE (21:07)
--- NOTE | 2023-09-04 21:11 | ERPHSYRPT ---
- History of Present Illness Time Seen by Provider: 09/04/23 18:55 Historian: patient Exam Limitations: no limitations Patient Subjective Stated Complaint: Abdominal pain Triage Nursing Assessment: Patient ambulated back to ED and transferred self to bed. Patient A+O X3. Patient's skin pink, warm and dry. Patient complains of RUQ pain 1/10 for the past few days. Patient complains of intermittent nausea, but denies vomiting or diarrhea. Abdomen soft and round with BS X 4. Physician History: 32-year-old male presents emergency department for evaluation of intermittent right upper quadrant pain for the past several days. Pain associated with nausea. Patient currently rates his pain 1 out of 10. Patient advises that he has a history of gallbladder sludge. Patient states that at the time he was diagnosed with a sludge he did not require surgery. However he is concerned that his symptoms may be related to worsening sludge or possible gallbladder stones. No trauma no fever. Symptoms are mild in intensity at this point. No specific worsening improving factors. Patient advised that he has a history of IVDU hepatitis. Patient voices no other complaints or concerns at this time. Portions of this note were created with voice recognition technology. There may be grammatical, spelling, punctuation or sound alike errors Timing/Duration: day(s) (3 days) Activities at Onset: none Quality: aching Abdominal Pain Onset Location: RUQ Pain Radiation: no radiation Severity of Pain-Max: moderate Severity of Pain-Current: mild Modifying Factors: Improves With: nothing Associated Symptoms: nausea (Patient declined pain medication and nausea) Previous symptoms: same symptoms as today Allergies/Adverse Reactions: No Known Drug Allergies Allergy (Verified 09/04/23 18:35) Hx Tetanus, Diphtheria Vaccination/Date Given: Yes (within 5 years) Hx Influenza Vaccination/Date Given: Yes Hx Pneumococcal Vaccination/Date Given: No Immunizations Up to Date: Yes Travel Risk - International Travel Have you traveled outside of the country in past 3 weeks: No - Emerging Infectious Disease Are you exhibiting symptoms associated with any current EIDs: No - Review of Systems Constitutional: No Symptoms, No Fever, No Chills Eyes: No Symptoms Ears, Nose, & Throat: No Symptoms Respiratory: No Symptoms, No Cough, No Dyspnea Cardiac: No Symptoms, No Chest Pain, No Edema, No Syncope Abdominal/Gastrointestinal: No Symptoms, No Abdominal Pain, No Nausea, No Vomiting, No Diarrhea Genitourinary Symptoms: No Symptoms, No Dysuria Musculoskeletal: No Symptoms, No Back Pain, No Neck Pain Skin: No Symptoms, No Rash Neurological: No Symptoms, No Dizziness, No Focal Weakness, No Sensory Changes Psychological: No Symptoms Endocrine: No Symptoms Hematologic/Lymphatic: No Symptoms Immunological/Allergic: No Symptoms All Other Systems: Reviewed and Negative - Past Medical History Pertinent Past Medical History: Yes Psycho-Social History: Anxiety, Depression Other Medical History: 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 Hep c. - Past Surgical History Past Surgical History: Yes Musculoskeletal: Other Other Surgical History: lt hand tendon surgery 2016 - Social History Smoking Status: Former smoker How long have you smoked: 13 Exposure to second hand smoke: Yes Drug Use: marijuana Patient Lives Alone: No - Nursing Vital Signs Nursing Vital Signs: Initial Vital Signs Temperature 97.8 F 09/04/23 18:39 Pulse Rate 92 H 09/04/23 18:39 Respiratory Rate 18 09/04/23 18:39 Blood Pressure 109/81 09/04/23 18:39 O2 Sat by Pulse Oximetry 98 09/04/23 18:39 Pain Scale Pain Intensity 1 - Physical Exam General Appearance: no apparent distress, alert Eye Exam: PERRL/EOMI, eyes nml inspection Ears, Nose, Throat Exam: normal ENT inspection, pharynx normal, moist mucous membranes Neck Exam: normal inspection, non-tender, supple, full range of motion Respiratory Exam: normal breath sounds, lungs clear, airway intact, No respirato ry distress Cardiovascular Exam: regular rate/rhythm, normal heart sounds Gastrointestinal/Abdomen Exam: soft, No tenderness, No mass Back Exam: normal inspection, normal range of motion, No CVA tenderness, No vertebral tenderness Extremity Exam: normal inspection, normal range of motion, pelvis stable Neurologic Exam: alert, oriented x 3, cooperative, normal mood/affect, nml cerebellar function, sensation nml, No motor deficits Skin Exam: normal color, warm, dry Lymphatic Exam: No adenopathy SpO2 Interpretation: normal SpO2: 96 O2 Delivery: Room Air - Course Nursing assessment & vital signs reviewed: Yes - CT Exams Abdomen/Pelvis CT Interpretation: Tele-radiologist Report (Compared to 04/05/2018 again distended gallbladder with wall thickening and nonobstructing bilateral renal punctate calculus. No new acute abnormalities) Ordered Tests: Active Orders 24 hr Category Date Time Status IV Insertion STAT Care 09/04/23 18:52 Active ABDOMEN AND PELVIS W CONTRAST [CT] Stat Exams 09/04/23 18:53 Taken CBC W DIFF Stat Lab 09/04/23 19:04 Completed CMP Stat Lab 09/04/23 19:04 Completed CULTURE,URINE Stat Lab 09/04/23 19:34 Received LIPASE Stat Lab 09/04/23 19:04 Completed Lactic Acid Stat Lab 09/04/23 19:03 Completed TROPONIN Q4H Lab 09/04/23 19:04 Completed TROPONIN Q4H Lab 09/04/23 19:04 Received TROPONIN Q4H Lab 09/05/23 03:00 Ordered UA W/RFX UR CULTURE Stat Lab 09/04/23 19:34 Completed Medication Summary Discontinued Medications Generic Name Dose Route Start Last Admin Trade Name Freq PRN Reason Stop Dose Admin Sodium Chloride 1,000 mls @ 999 mls/hr 09/04/23 18:52 09/04/23 20:06 Sodium Chloride 0.9% 1000 Ml IV 09/04/23 19:52 Infused .Q1H1M STA Infusion Sodium Chloride Confirm 09/04/23 19:03 Sodium Chloride 0.9% 1000 Ml Administered 09/04/23 19:04 Dose 1,000 mls @ ud .ROUTE .STK-MED ONE Ceftriaxone Sodium 1 gm in 100 mls @ 200 mls/hr 09/04/23 20:56 09/04/23 21:07 Rocephin 1 Gm / 100 Ml Nacl IV 09/04/23 21:25 200 mls/hr STAT ONE 200 mls/hr Administration Ceftriaxone Sodium Confirm 09/04/23 21:05 Rocephin 1 Gm / 100 Ml Nacl Administered 09/04/23 21:06 Dose 1 gm in 100 mls @ ud IV .STK-MED ONE Lab/Rad Data: Laboratory Result Diagrams 09/04/23 19:04 09/04/23 19:04 Laboratory Results 09/04/23 09/04/23 09/04/23 Range/Units 19:34 19:04 19:04 WBC (4.0-10.5) x10^3/uL RBC (4.1-5.6) x10^6/uL Hgb (12.5-18.0) g/dL Hct (42-50) % MCV (78-100) fL MCH (26-32) pg MCHC (32-36) g/dL RDW (11.5-14.0) % Plt Count (150-450) x10^3/uL MPV (7.5-11.0) fL Gran % (36.0-66.0) % Immature Gran % (Auto) (0.00-0.4) % Nucleat RBC Rel Count (0.00-0.1) % Eos # (Auto) (0-0.5) x10^3/uL Immature Gran # (Auto) (0.00-0.03) x10^3u/L Absolute Lymphs (auto) (1.0-4.6) x10^3/uL Absolute Monos (auto) (0.0-1.3) x10^3/uL Absolute Nucleated RBC (0.00-0.01) x10^3u/L Lymphocytes % (24.0-44.0) % Monocytes % (0.0-12.0) % Eosinophils % (0.00-5.0) % Basophils % (0.0-0.4) % Absolute Granulocytes (1.4-6.9) x10^3/uL Basophils # (0-0.4) x10^3/uL Sodium 138 (135-145) mmol/L Potassium 4.0 (3.5-5.1) mmol/L Chloride 106 (98-107) mmol/L Carbon Dioxide 24 (22-30) mmol/L Anion Gap 12.0 (5-15) MEQ/L BUN 19 (9-20) mg/dL Creatinine 1.06 (0.66-1.25) mg/dL Estimated GFR 95.6 ML/MIN Glucose 93 (74-106) mg/dL Lactic Acid (0.4-2.0) Calcium 9.1 (8.4-10.2) mg/dL Total Bilirubin 0.30 (0.2-1.3) mg/dL AST 36 (17-59) U/L ALT 50 (0-50) U/L Alkaline Phosphatase 93 (38-126) U/L Troponin I < 0.012 (0.000-0.033) ng/mL Serum Total Protein 6.6 (6.3-8.2) g/dL Albumin 3.8 (3.5-5.0) g/dL Lipase 34 (23-300) U/L Urine Color Dark Yellow (Yellow) Urine Appearance Turbid A (Clear) Urine pH 5.5 (4.6-8.0) Ur Specific [place] >=1.030 A (1.005-1.030) Urine Protein 30 (Negative) Urine Glucose (UA) Negative (Negative) mg/dL Urine Ketones Trace A (Negative) Urine Blood Moderate A (Negative) Urine Nitrite Negative (Negative) Urine Bilirubin Negative (Negative) Urine Urobilinogen 1.0 A (0.2) mg/dL Ur Leukocyte Esterase Small A (Negative) U Hyaline Cast (Auto) 3-5 A (0-2) /LPF Urine Microscopic RBC 11-20 A (0-5) /HPF Urine Microscopic WBC 21-50 A (0-5) /HPF Ur Epithelial Cells Rare (None Seen) /HPF Calcium Oxalate Crystal 3-5 A (None Seen) /HPF Urine Bacteria None Seen (None Seen) /HPF Urine Culture Reflexed YES (NO) 09/04/23 09/04/23 Range/Units 19:04 19:03 WBC 7.2 (4.0-10.5) x10^3/uL RBC 4.18 (4.1-5.6) x10^6/uL Hgb 12.9 (12.5-18.0) g/dL Hct 37.6 L (42-50) % MCV 90.0 (78-100) fL MCH 30.9 (26-32) pg MCHC 34.3 (32-36) g/dL RDW 12.0 (11.5-14.0) % Plt Count 223 (150-450) x10^3/uL MPV 9.6 (7.5-11.0) fL Gran % 48.3 (36.0-66.0) % Immature Gran % (Auto) 0.3 (0.00-0.4) % Nucleat RBC Rel Count 0.0 (0.00-0.1) % Eos # (Auto) 0.19 (0-0.5) x10^3/uL Immature Gran # (Auto) 0.02 (0.00-0.03) x10^3u/L Absolute Lymphs (auto) 2.74 (1.0-4.6) x10^3/uL Absolute Monos (auto) 0.72 (0.0-1.3) x10^3/uL Absolute Nucleated RBC 0.00 (0.00-0.01) x10^3u/L Lymphocytes % 38.2 (24.0-44.0) % Monocytes % 10.0 (0.0-12.0) % Eosinophils % 2.6 (0.00-5.0) % Basophils % 0.6 (0.0-0.4) % Absolute Granulocytes 3.47 (1.4-6.9) x10^3/uL Basophils # 0.04 (0-0.4) x10^3/uL Sodium (135-145) mmol/L Potassium (3.5-5.1) mmol/L Chloride (98-107) mmol/L Carbon Dioxide (22-30) mmol/L Anion Gap (5-15) MEQ/L BUN (9-20) mg/dL Creatinine (0.66-1.25) mg/dL Estimated GFR ML/MIN Glucose (74-106) mg/dL Lactic Acid 0.5 (0.4-2.0) Calcium (8.4-10.2) mg/dL Total Bilirubin (0.2-1.3) mg/dL AST (17-59) U/L ALT (0-50) U/L Alkaline Phosphatase (38-126) U/L Troponin I (0.000-0.033) ng/mL Serum Total Protein (6.3-8.2) g/dL Albumin (3.5-5.0) g/dL Lipase (23-300) U/L Urine Color (Yellow) Urine Appearance (Clear) Urine pH (4.6-8.0) Ur Specific [place] (1.005-1.030) Urine Protein (Negative) Urine Glucose (UA) (Negative) mg/dL Urine Ketones (Negative) Urine Blood (Negative) Urine Nitrite (Negative) Urine Bilirubin (Negative) Urine Urobilinogen (0.2) mg/dL Ur Leukocyte Esterase (Negative) U Hyaline Cast (Auto) (0-2) /LPF Urine Microscopic RBC (0-5) /HPF Urine Microscopic WBC (0-5) /HPF Ur Epithelial Cells (None Seen) /HPF Calcium Oxalate Crystal (None Seen) /HPF Urine Bacteria (None Seen) /HPF Urine Culture Reflexed (NO) - Progress Progress: improved Progress Note: 32-year-old male presents to emergency department for evaluation of right upper quadrant pain. Workup reveals biliary sludge. Ultrasound was currently not available. Patient will require an outpatient ultrasound. Patient states he will follow-up with Dr. Hollis's office and obtain his outpatient ultrasound. Laboratory workup essentially nonremarkable. Urinalysis reveals urinary tract infection. Patient received a dose of Rocephin in our ED. A prescription for Keflex forwarded to patient's pharmacy. Patient is currently asymptomatic. Patient denies pain. No nausea no vomiting. Will discharge patient home at this time. He agrees to follow-up with Dr. Hollis in the morning. Patient will complete his antibiotics as prescribed. Patient voices no other complaints or concerns at this time. Complexity problem addressed is moderate. No critical care time Complex of data reviewed and analyzed is moderate. Test ordered test reviewed results analyzed and correlated clinically with history and physical exam. Risk of complication and or risk of morbidity/mortality patient management is moderate. A prescription for Keflex forwarded to patient's pharmacy. Vital stable. Time spent to discharge patient is approximately 20 minutes. Plan of care established for shared decision making. No social determinants health present impede follow-up 09/04/23 21:34 Counseled pt/family regarding: lab results, diagnosis, need for follow-up, rad results - Departure Departure Disposition: Home Clinical Impression: Urinary tract infection, Gallbladder sludge Condition: Stable Critical Care Time: No Referrals: DOCTOR,NO FAMILY [Primary Care Provider] - Follow up/PCP as directed JOSE GUADALUPE HOLLIS MD [ACTIVE STAFF] - Follow up/PCP as directed Additional Instructions: Discharge/Care Plan GILDARDO LEVINE was seen on 09/04/23 in the Emergency Room. The patient was counseled regarding Diagnosis,Lab results, Imaging studies, need for follow up and when to return to the Emergency Room. Prescriptions given: Discharge Note I have spoken with the patient and/or caregivers. I have explained the patient's condition, diagnosis and treatment plan based on the information available to me at this time. I have answered the patient's and/or caregiver's questions and addressed any concerns. The patient and/or caregivers have as good understanding of the patient's diagnosis, condition and treatment plan as can be expected at this point. The vital signs have been stable. The patient's condition is stable and appropriate for discharge from the emergency department. The patient will pursue further outpatient evaluation with the primary care physician or other designated or consulting physician as outlined in the disc harge instructions. The patient and/or caregivers are agreeable to this plan of care and follow-up instructions have been explained in detail. The patient and/or caregivers have received these instruction. The patient/and or caregivers are aware that any significant change in condition or worsening of symptoms should prompt an immediate return to this or the closest emergency department or call 911. Prescriptions: Cephalexin Mh 500 mg [Keflex 500 mg] 500 mg PO TID #21 cap
[2023-09-04 22:43] LABS: CHLAMYDIA DNA NOT DETECTED (NEGATIVE); GC DNA Probe NOT DETECTED (NEGATIVE)
--- NOTE | 2023-09-05 08:56 | XRAY ---
Indication: Right upper quadrant pain. Multiple contiguous axial images obtained through the abdomen and pelvis using 80 cc Isovue 370 contrast. Comparison: April 05, 2018 Lung bases demonstrate minimal dependent atelectasis. No infiltrate or effusion. Heart not enlarged. Visualized distal esophagus now demonstrates circumferential wall thickening, possible esophagitis. Noncontrasted stomach and bowel loops appear nonobstructed with normal appendix. Gallbladder again moderately distended with circumferential wall thickening but no radiopaque stone. Stable 2 mm nonobstructing left renal and new right renal micro-calculus. No free fluid/air. Remaining liver, pancreas, spleen, adrenal glands, kidneys, ureters, bladder, and aorta are unremarkable. No pathologic retroperitoneal lymphadenopathy. Osseous structures intact. Impression: 1. Distal esophageal circumferential wall thickening. Rule out reflux esophagitis. 2. Again distended gallbladder with wall thickening. Rule out acalculous cholecystitis. Gallbladder sonogram may yield further information. 3. Nonobstructing bilateral renal micro-calculus.
== END 2023-09-04 21:51 | disposition home or self-care (01) ==
LOC: ED 18:29
DX: N39.0 Urinary tract infection, site not specified (principal); K82.8 Other specified diseases of gallbladder; R10.11 Right upper quadrant pain; R11.0 Nausea; Z79.899 Other long term (current) drug therapy
CPT/HCPCS: 36000; 36415; 74177; 80053; 81001; 83605; 83690; 84484; 85025; 87086; 87491; 87591; 96365; 99284; J0696

== ENCOUNTER 2024-08-01 09:02 | Emergency (ER) | payer MEDICAID, OTHER ==
--- NOTE | 2024-08-01 09:06 | ERPHSYRPT ---
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 Hep c. - Past Surgical History Past Surgical History: Yes Musculoskeletal: Other Other Surgical History: lt hand tendon surgery 2015 - Social History Smoking Status: Former smoker How long have you smoked: 13 Exposure to second hand smoke: Yes Drug Use: marijuana Patient Lives Alone: No - Social Determinants of Health Will the patient participate in the screening: Yes Do you worry about a steady place to live?: No In the past 12 months,have you had to go without utilities?: No Transportation Issues: No Has anyone in your support network made you feel unsafe?: No Have you or anyone in your house had to go w/o enough food: No - Departure Referrals: JOSE GUADALUPE HOLLIS MD [Primary Care Provider] - Follow up/PCP as directed
[2024-08-01 09:16] VITALS: PULSE 84; RESP 17; TEMP 97.5; O2SAT 98
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
[2024-08-01] MEDS ORDERED: AMOXIL 500 MG ONE (09:36)
[2024-08-01] MEDS: AMOXIL 500 MG PO ONE (09:37)
[2024-08-01 09:41] VITALS: BP 114/66
== END 2024-08-01 09:41 | disposition home or self-care (01) ==
LOC: ED 09:02
DX: K04.7 Periapical abscess without sinus (principal); K02.9 Dental caries, unspecified; Z79.899 Other long term (current) drug therapy; Z72.0 Tobacco use
CPT/HCPCS: 99281; 99283; A9270-GY